=== PATIENT | male | born 1995 | race Caucasian/White ===

== ENCOUNTER 2019-02-07 22:44 | Emergency (ER) | payer OTHER ==
[~2019-02-07] VITALS: Ht 177.8 cm; Wt 78.0 kg
[2019-02-07] MEDS ORDERED: SODIUM CHLORIDE 0.9% 1,000 ML IV ONE (23:31)
[2019-02-07] MEDS ORDERED: MORPHINE SULFATE 4 MG/ML CPJ (NOT FOR IM USE) IV ONE (23:45)
[2019-02-07] MEDS ORDERED: ONDANSETRON HCL 4MG/2ML INJ IV ONE (23:45)
[2019-02-07] MEDS ORDERED: PROPOFOL 200MG/20ML VIAL IV ONE (23:45)
[2019-02-08 03:00] VITALS: BP 114/68
== END 2019-02-08 03:00 | disposition home or self-care (01) ==
LOC: ER 22:44
DX: S43.085A Other dislocation of left shoulder joint, initial encounter (principal); X58.XXXA Exposure to other specified factors, initial encounter; Y93.89 Activity, other specified; Y92.89 Other specified places as the place of occurrence of the external cause; Y99.8 Other external cause status; F17.200 Nicotine dependence, unspecified, uncomplicated
CPT/HCPCS: 23650; 73030; 96374; 96375; 99152; 99285; 99406; J2270; J2405; J2704; J7030; L3670